=== PATIENT | female | born 1980 | race Caucasian/White ===

== ENCOUNTER 2019-04-28 13:19 | Emergency (ER) | payer MEDICAID ==
[~2019-04-28] VITALS: Ht 157.5 cm; Wt 59.9 kg
[~2019-04-28 13:19] MED LIST: ACET500C5 PO; CEPH-443 PO
[2019-04-28 13:48] VITALS: BP 112/62; PULSE 75; RESP 18; Ht 157.5 cm; Wt 59.9 kg
== END 2019-04-28 17:15 | disposition home or self-care (01) ==
LOC: FTE 13:19
DX: O20.0 Threatened abortion (principal); Z3A.01 Less than 8 weeks gestation of pregnancy
CPT/HCPCS: 36415; 76801; 81001; 84702; 85025; 86900; 86901; 87086; Z7502